=== PATIENT | male | born 1960 | race Hispanic/Latino ===

== ENCOUNTER 2023-08-05 08:29 | Day surgery (SDC) | payer OTHER ==
[2023-08-05 09:34] LABS: Potassium 4.8 mEq/L (3.5-5.1)
[2023-08-05] MEDS ORDERED: NA CHLORIDE 0.9% 1,000 ML ONE (09:48)
[2023-08-05] MEDS ORDERED: GLYCOPYRROLATE 0.2 MG/ML SYR ONE (11:49)
[2023-08-05] MEDS ORDERED: propofoL 200 MG/20 ML VIAL IV ONE (11:49)
[2023-08-05] MEDS ORDERED: LIDOCAINE 1% MPF 30 ML VIAL ONE (11:50)
[2023-08-05 13:34] VITALS: TEMP 97.5
[2023-08-05 13:36] VITALS: BP 118/76; O2SAT 98
== END 2023-08-05 13:08 | disposition home or self-care (01) ==
LOC: OR 08:29
PROVIDERS: ATTEND Surgery
PROC: 0DJD8ZZ Inspection of Lower Intestinal Tract, Via Natural or Artificial Opening Endoscopic (ICD-10-PCS; principal; 2023-08-05 11:30)
DX: Z12.11 Encounter for screening for malignant neoplasm of colon (principal); N42.9 Disorder of prostate, unspecified; K64.8 Other hemorrhoids
CPT/HCPCS: 93005; 80048; 36415; J2704; J2001; J7030; G0121

== ENCOUNTER 2023-09-20 10:13 | Day surgery (SDC) | payer OTHER ==
[2023-09-20 10:21] LABS: Absolute Lymphocytes (CBC) 2.8 K/uL (0.7-4.9); Hematocrit 41.6 % (39.6-49.0); Lymphocytes % 35.8 % (15.3-44.8); MCV 88.1 fL (80-100); Platelets 302 thou/uL (152-406); RBC Red Blood Cell Count 4.72 M/uL (4.33-5.43)
[2023-09-20 10:24] LABS: Potassium 3.8 mEq/L (3.5-5.1)
--- NOTE | 2023-09-20 10:27 | RAD REPORT ---
EXAM DESCRIPTION: Karlos Magaña (2 Views)09/20/2023 10:17 am CLINICAL HISTORY: Preop hypertension COMPARISON: 2017 FINDINGS: The lungs appear clear of acute infiltrate. The heart is normal size IMPRESSION: No acute abnormalities displayed
[2023-09-20] MEDS ORDERED: CEFAZOLIN SODIUM 1 GM/VIAL ONE (10:58)
[2023-09-20] MEDS ORDERED: NA CHLORIDE 0.9% 1,000 ML ONE ×2 (10:58→13:47)
[2023-09-20] MEDS ORDERED: LIDOCAINE 1% MPF 5 ML VIAL ONE (12:14)
[2023-09-20] MEDS ORDERED: ONDANSETRON 4 MG/2 ML VIAL ONE ×2 (12:14→14:03)
[2023-09-20] MEDS ORDERED: ROCURONIUM 50 MG/5 ML VIAL IV ONE (12:14)
[2023-09-20] MEDS ORDERED: FENTANYL CITR 100 MCG/2 ML ONE (12:14)
[2023-09-20] MEDS ORDERED: MIDAZOLAM HCL 2 MG/2 ML INJ ONE (12:14)
[2023-09-20] MEDS ORDERED: propofoL 200 MG/20 ML VIAL IV ONE (12:14)
[2023-09-20] MEDS ORDERED: KETOROLAC 30 MG/ML INJ ONE (12:14)
[2023-09-20] MEDS ORDERED: HYDROMORPHONE HCL 1 MG/ML INJ ONE (12:50)
[2023-09-20] MEDS ORDERED: dexAMETHasone 10 MG/ML VIAL ONE (12:54)
[2023-09-20] MEDS ORDERED: EPHEDRINE SULF 50 MG/ML VIAL ONE (13:00)
[2023-09-20] MEDS ORDERED: NEOSTIGMINE 1 MG/ML -10 ML VIAL ONE (13:33)
[2023-09-20] MEDS ORDERED: GLYCOPYRROLATE 0.2 MG/ML SYR ONE (13:33)
--- NOTE | 2023-09-20 13:41 | P.BOP ---
Preoperative diagnosis: tender left inguinal hernia Postoperative diagnosis: same Primary procedure: Laparoscopic repair of tender left inguinal hernia with mesh Estimated blood loss: <10cc Specimen: none Findings: LIH Anesthesia: General Complications: None Drain(s): Other (large 3D mesh) Transferred to: Recovery Room Condition: Good
[2023-09-20] MEDS ORDERED: PROMETHAZINE INJ 25 MG/ML AMP ONE (14:03)
[2023-09-20 14:23] VITALS: O2SAT 96
[2023-09-20 14:48] VITALS: BP 125/73; TEMP 97.7
== END 2023-09-20 16:35 | disposition home or self-care (01) ==
LOC: OR 10:13
PROVIDERS: ATTEND Surgery
PROC: 0YU64JZ Supplement Left Inguinal Region with Synthetic Substitute, Percutaneous Endoscopic Approach (ICD-10-PCS; principal; 2023-09-20 12:30)
DX: K40.90 Unilateral inguinal hernia, without obstruction or gangrene, not specified as recurrent (principal)
CPT/HCPCS: 85025; 80048; 36415; 82947 ×2; 71046; 49650; J2550; J2704; J2710; J2250; J3010; J1100; J1170; J2405 ×2; J7030 ×2; J0690; J2001